=== PATIENT | male | born 1945 | race Two or more races ===

== ENCOUNTER 2017-06-27 11:48 | Outpatient (CLI) | payer OTHER ==
[~2017-06-27 11:48] MED LIST: ASA81 MG PO; CADUET 10 MG/201 TAB PO; FLOMAX
== END 2017-06-27 15:00 | disposition home or self-care (01) ==
LOC: RAD 11:48
DX: M54.2 Cervicalgia (principal)

== ENCOUNTER 2018-09-06 09:26 | Outpatient (CLI) | payer OTHER | END 2018-09-06 17:00 | disposition home or self-care (01) | LOC: SONOGRAMA 09:26 | DX: M75.91 Shoulder lesion, unspecified, right shoulder (principal) ==

== ENCOUNTER 2018-10-15 11:59 | Outpatient (CLI) | payer OTHER | END 2018-10-15 15:51 | disposition home or self-care (01) | LOC: RAD 11:59 | DX: Z01.818 Encounter for other preprocedural examination (principal) ==

== ENCOUNTER 2019-02-11 11:35 | Emergency (ER) | payer OTHER ==
[~2019-02-11] VITALS: Ht 167.6 cm; Wt 71.7 kg
[2019-02-11] MEDS ORDERED: AVODART0.5 MG (12:40)
[2019-02-11] MEDS ORDERED: TAMS0.4C (12:40)
[2019-02-11] MEDS ORDERED: BYSTOLIC5 MG (12:40)
[2019-02-11] MEDS ORDERED: VIAGRA100 MG (12:41)
[2019-02-11] MEDS ORDERED: KETO10TA2 PO (14:25)
== END 2019-02-11 14:32 | disposition home or self-care (01) ==
LOC: ER 11:35
DX: G56.01 Carpal tunnel syndrome, right upper limb (principal)

== ENCOUNTER 2019-03-05 11:24 | Outpatient (CLI) | payer OTHER ==
[~2019-03-05 11:24] MED LIST changes: +AVODART0.5 MG; +BYSTOLIC5 MG; +KETO10TA2 PO; +TAMS0.4C; +VIAGRA100 MG
== END 2019-03-05 11:26 | disposition home or self-care (01) ==
LOC: RAD 11:24
DX: G54.2 Cervical root disorders, not elsewhere classified (principal)

== ENCOUNTER 2020-08-28 08:06 | Outpatient (CLI) | payer OTHER | END 2020-08-28 08:15 | disposition home or self-care (01) | LOC: TOM 08:06 | PROVIDERS: ATTEND Family Medicine | DX: R10.30 Lower abdominal pain, unspecified (principal); K92.1 Melena; N41.9 Inflammatory disease of prostate, unspecified; R31.9 Hematuria, unspecified ==

== ENCOUNTER 2022-03-02 09:13 | Outpatient (CLI) | payer OTHER | END 2022-03-02 09:18 | disposition home or self-care (01) | LOC: SONOGRAMA 09:13 | PROVIDERS: ATTEND Family Medicine | DX: R10.30 Lower abdominal pain, unspecified (principal); R30.0 Dysuria ==

== ENCOUNTER 2022-06-02 13:57 | Outpatient (CLI) | payer OTHER | END 2022-06-02 13:58 | disposition home or self-care (01) | LOC: SONOGRAMA 13:57 | PROVIDERS: ATTEND Family Medicine | DX: M75.91 Shoulder lesion, unspecified, right shoulder (principal) ==

== ENCOUNTER 2023-04-11 07:11 | Outpatient (CLI) | payer OTHER | END 2023-04-11 07:25 | disposition home or self-care (01) | LOC: TOM 07:11 | PROVIDERS: ATTEND Family Medicine | DX: R10.10 Upper abdominal pain, unspecified (principal) | CPT/HCPCS: 74177; Q9965 ==

== ENCOUNTER 2024-12-10 10:26 | Outpatient (CLI) | payer OTHER | END 2024-12-10 10:29 | disposition home or self-care (01) | LOC: RAD 10:26 | PROVIDERS: ATTEND Family Medicine | DX: M25.561 Pain in right knee (principal); M25.562 Pain in left knee ==

== ENCOUNTER 2025-02-19 10:17 | Emergency (ER) | payer OTHER ==
[~2025-02-19] VITALS: Ht 162.6 cm; Wt 68.0 kg
[2025-02-19 12:10] LABS: BASO % 0.5 % (0.1-1.2); EOS # 0.11 (0.04-0.54); EOS % 1.7 % (0.7-7.0); LYMPH # 1.76 (1.18-3.74); LYMPH % 27.0 % (19.3-53.1); MEAN PLATELET VOLUME 10.60 fl (9.4-12.4); MONO # 0.71 (0.24-0.82); MONO % 10.9 % (4.7-12.5); NEUT # 3.88 (1.56-6.13); NEUT % 59.6 % (34.0-71.1); RED CELL DISTRIBUTION WIDTH 12.9 % (11.6-14.4)
[2025-02-19 12:36] LABS: ALT/SGPT 30.0 U/L (12-78); AST/SGOT 22.0 U/L (15-37); BILIRUBIN TOTAL 2.0 mg/dL (0.3-1.2); BUN CREA RATIO 21.0 (7.0-25.0); CREATININE SERUM 0.82 mg/dL (0.70-1.30); GFR 90.63; GLOBULINA 3.5 G/DL (2.4-3.5); GLUCOSE FASTING 95.0 mg/dL (65-100); OSMOLALITY SERUM 283.0 MOSM/KG (275-295)
[2025-02-19] MEDS ORDERED: KETOROLAC TROMETHAMINE 30 MG VIAL ONE (16:28)
[2025-02-19] MEDS ORDERED: KETOROLAC TROMETHAMINE 30 MG VIAL IM STA (16:28)
== END 2025-02-19 17:03 | disposition home or self-care (01) ==
LOC: ER 10:17
PROVIDERS: Preventive Medicine Public Health & General Preventive Medicine
DX: M79.604 Pain in right leg (principal); I10 Essential (primary) hypertension
CPT/HCPCS: 36415; 73562; 93971; 96372; 99284; J1885

== ENCOUNTER 2025-02-21 12:09 | Outpatient (CLI) | payer OTHER | END 2025-02-21 12:18 | disposition home or self-care (01) | LOC: MRI 12:09 | PROVIDERS: ATTEND Family Medicine | DX: M25.561 Pain in right knee (principal) | CPT/HCPCS: 73721 ==